=== PATIENT | female | born 1960 | race Caucasian/White ===

== ENCOUNTER 2017-08-28 23:23 | Emergency (ER) | payer BC, OTHER ==
[2017-08-29 00:08] VITALS: BP 136/85
--- NOTE | 2017-08-29 00:52 | EDM.PDOC ---
ED HPI GENERAL MEDICAL PROBLEM - General Chief Complaint: Chemical Exposure Stated Complaint: CHEMICAL IN BOTH EYES Time Seen by Provider: 08/29/17 00:46 Source of Information: Reports: Patient History Limitations: Reports: No Limitations - History of Present Illness INITIAL COMMENTS - FREE TEXT/NARRATIVE: About 5 hours ago this lady was at home and spilled some [place]. It was full strength. It hit the floor and some of the soreness splashed up in both of her eyes. She flushed her eyes with water for 15 minutes and called poison control and they told her she needed to come to the ER. 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 - Related Data Allergies Allergy/AdvReac Type Severity Reaction Status Date / Time aspirin Allergy Vomiting Verified 12/17/15 23:19 codeine Allergy Swelling Verified 12/17/15 23:19 Penicillins Allergy Jaundice Verified 12/17/15 23:19 Home Meds: Home Meds NK [No Known Home Meds] 12/17/15 [History] Past Medical History [employer] History: Reports: , Spontaneous Musculoskeletal History: Reports: Fracture Other Musculoskeletal History: foot Hematologic History: Reports: Anemia, Blood Transfusion(s) - Infectious Disease History Infectious Disease History: Reports: Chicken Pox, Mumps - Past Surgical History HEENT Surgical History: Reports: Polypectomy GI Surgical History: Reports: Cholecystectomy, Hernia, Inguinal, Other (See Below) Musculoskeletal Surgical History: Reports: Arthroscopic Procedure, Shoulder Surgery Social & Family History - Tobacco Use Smoking Status *Q: Heavy Tobacco Smoker Years of Tobacco use: 35 Packs/Tins Daily: 0.5 Used Tobacco, but Quit: No Second Hand Smoke Exposure: Yes - Caffeine Use Caffeine Use: Reports: Coffee - Recreational Drug Use Recreational Drug Use: No ED ROS GENERAL - Review of Systems Review Of Systems: ROS reveals no pertinent complaints other than HPI. ED EXAM, BURN/SMOKE INHALATION - Physical Exam Exam: See Below Exam Limited By: No Limitations General Appearance: Alert Eye Exam: Bilateral Eye: Normal Inspection, Other (I don't see any conjunctivae 5 this whatsoever her corneas appear to be normal. The corneas did not appear to need floor seen dye.) Course - Vital Signs Last Recorded V/S: Last Vital Signs Temp 35.7 C 04/04/18 00:17 Pulse 82 08/29/17 00:17 Resp 18 08/29/17 00:17 BP 136/85 08/29/17 00:17 Pulse Ox 100 08/29/17 00:17 Departure - Departure Time of Disposition: 00:50 Disposition: Home, Self-Care 01 Condition: Fair Clinical Impression: Chemical burn due to alkali, conjunctiva - Discharge Information Referrals: Liliam Amanda PA [Primary Care Provider] - Additional Instructions: There does not appear to be any damage to your eyes. You did a good job of washing out your eyes after this exposure so everything should be fine and no more treatment is needed.
== END 2017-08-29 01:20 | disposition home or self-care (01) ==
LOC: JP.ED 23:23
DX: T26.62XA Corrosion of cornea and conjunctival sac, left eye, initial encounter (principal); T26.61XA Corrosion of cornea and conjunctival sac, right eye, initial encounter; F17.210 Nicotine dependence, cigarettes, uncomplicated; Z88.6 Allergy status to analgesic agent; Z88.5 Allergy status to narcotic agent; Z88.0 Allergy status to penicillin; Y92.009 Unspecified place in unspecified non-institutional (private) residence as the place of occurrence of the external cause
CPT/HCPCS: 99283

== ENCOUNTER 2022-08-10 12:17 | Emergency (ER) | payer MEDICAID ==
[2022-08-10] MEDS ORDERED: Ondansetron 4 MG Tab.DIS PO ONE (13:32)
[2022-08-10] MEDS ORDERED: Ketorolac 30 MG/ML SDV IM ONE (15:28)
[2022-08-10 15:37] VITALS: BP 110/60; PULSE 62
== END 2022-08-10 15:48 | disposition home or self-care (01) ==
LOC: JP.ED 12:17
DX: S09.90XA Unspecified injury of head, initial encounter (principal); S40.011A Contusion of right shoulder, initial encounter; S40.012A Contusion of left shoulder, initial encounter; Z88.6 Allergy status to analgesic agent; Z88.8 Allergy status to other drugs, medicaments and biological substances; Z88.5 Allergy status to narcotic agent; Z88.0 Allergy status to penicillin; Z91.048 Other nonmedicinal substance allergy status; Z91.018 Allergy to other foods; W00.0XXA Fall on same level due to ice and snow, initial encounter
CPT/HCPCS: 70450; 73030; 96372; 99283; 99284; J1885; Q0162

== ENCOUNTER 2022-10-08 04:56 | Emergency (ER) | payer MEDICAID ==
[2022-10-08 05:37] VITALS: BP 157/74; PULSE 100
[2022-10-08] MEDS ORDERED: Albuterol/Ipratropium 3.0-0.5 MG/3 ML Neb Soln NEB ONE (05:42)
== END 2022-10-08 06:35 | disposition home or self-care (01) ==
LOC: JP.ED 04:56
DX: J18.9 Pneumonia, unspecified organism (principal); J45.909 Unspecified asthma, uncomplicated; Z86.16 Personal history of COVID-19; Z88.0 Allergy status to penicillin; Z91.011 Allergy to milk products; Z88.5 Allergy status to narcotic agent; Z91.018 Allergy to other foods; Z88.8 Allergy status to other drugs, medicaments and biological substances; Z72.0 Tobacco use
CPT/HCPCS: 94640; 99284; J7620